=== PATIENT | female | born 1990 | race Hispanic/Latino ===

== ENCOUNTER 2025-07-12 19:00 | Inpatient (IN) | payer BC, MEDICAID ==
[2025-07-12] MEDS ORDERED: Oxytocin 30 units/NS 500 ML 500 ML IV SCH ×2 (20:06)
[2025-07-12] MEDS ORDERED: Diphenoxylate HCl/Atropine Tablet PO PRN (20:06)
[2025-07-12] MEDS ORDERED: Ondansetron PF 4 MG/2 ML Vial IVP PRN (20:06)
[2025-07-12] MEDS ORDERED: Tranexamic Acid 1,000 MG/10 ML VIAL IVP PRN (20:06)
[2025-07-12] MEDS ORDERED: Lidocaine 1% (PF) 30 ML VIAL SC PRN (20:06)
[2025-07-12] MEDS ORDERED: hydrALAZINE 20 MG/ML VIAL SLOW IVP PRN (20:06)
[2025-07-12] MEDS ORDERED: HYDROcodone/Acetaminophen 5/325 mg Tablet PO PRN (20:06)
[2025-07-12] MEDS ORDERED: Carboprost 250 MCG/ML AMP IM PRN (20:06)
[2025-07-12] MEDS ORDERED: Methylergonovine 0.2 MG/ML VIAL IM PRN (20:06)
[2025-07-12 20:16] VITALS: BMI 32.1
[2025-07-12 21:22] LABS: Hematocrit 32.5 % (34.9-44.5); Hemoglobin 11.4 g/dL (12.0-15.5); Mean Corpuscular Hemoglobin 29.6 pg (27.0-33.0); Mean Corpuscular Volume 84.4 fL (81.6-98.3); Platelet Count 233 10x3/uL (150-450); Red Blood Cell (RBC) Count 3.85 10x6/uL (3.90-5.03); White Blood Cell (WBC) Count 7.90 10x3/uL (3.5-10.5)
[2025-07-12 22:30] LABS: Syphilis Antibody Index 0.06 S/CO (<1.00 Non-Reactive)
[2025-07-12 22:32] LABS: Hep B Surf Ag - L&D Non-Reactive S/CO (NonReactive)
[2025-07-13] MEDS: fentaNYL/Ropivacaine Epidural 100 ML ONE (11:20)
[2025-07-13] MEDS ORDERED: Acetaminophen 325 MG TAB PO PRN (11:36)
[2025-07-13] MEDS ORDERED: Ondansetron PF 4 MG/2 ML Vial IVP PRN ×2 (11:36→22:01)
[2025-07-13] MEDS ORDERED: diphenhydrAMINE 50 MG/ML VIAL IVP PRN (11:36)
[2025-07-13] MEDS ORDERED: Communication Order-Pharmacy FS SCH (11:45)
[2025-07-13] MEDS ORDERED: fentaNYL 2 mcg/Ropivacaine 0.2% Epidural 100 ML CADD EPIDURAL SCH (11:45)
[2025-07-13] MEDS: Oxytocin 30 units/NS 500 ML 500 ML IV SCH (11:59)
[2025-07-13] MEDS ORDERED: Bupivacaine 0.25% HCL 30 ML VIAL ONE (17:00)
[2025-07-13] MEDS: Acetaminophen 500 MG TAB PO PRN (20:48)
[2025-07-13] MEDS: Ibuprofen 800 MG TAB PO PRN (20:48)
[2025-07-13] MEDS ORDERED: Bisacodyl 10 MG SUPP PR PRN (22:01)
[2025-07-13] MEDS ORDERED: HYDROcodone/Acetaminophen 5/325 mg Tablet PO PRN (22:01)
[2025-07-13] MEDS ORDERED: hydrALAZINE 20 MG/ML VIAL SLOW IVP PRN (22:01)
[2025-07-13] MEDS ORDERED: diphenhydrAMINE 25 MG CAP PO PRN (22:01)
[2025-07-13] MEDS ORDERED: Milk Of Magnesia 30 ML UDCUP PO PRN (22:01)
[2025-07-13] MEDS ORDERED: Boostrix 0.5 ML (Tdap) VIAL (>/=7 yrs of age) IM ONE (22:01)
[2025-07-14] MEDS: Ibuprofen 800 MG TAB PO SCH ×2 (00:06→04:52)
[2025-07-14] MEDS: Ferrous Sulfate 325 MG TAB PO SCH (08:27)
[2025-07-14 20:33] VITALS: BP 113/68; TEMP 97.7
== END 2025-07-14 20:50 | disposition home or self-care (01) | DRG 807 ==
LOC: CSHLD 19:44 → CSHPP 07-13 21:45
PROVIDERS: ADMIT Family Medicine; ATTEND Family Medicine
PROC: 10E0XZZ Delivery of Products of Conception, External Approach (ICD-10-PCS; principal; 2025-07-13)
PROC: 10907ZC Drainage of Amniotic Fluid, Therapeutic from Products of Conception, Via Natural or Artificial Opening (ICD-10-PCS; 2025-07-13)
PROC: 3E0DXGC Introduction of Other Therapeutic Substance into Mouth and Pharynx, External Approach (ICD-10-PCS; 2025-07-13)
DX: O24.420 Gestational diabetes mellitus in childbirth, diet controlled (principal); Z37.0 Single live birth; Z79.899 Other long term (current) drug therapy; Z79.82 Long term (current) use of aspirin; Z3A.39 39 weeks gestation of pregnancy
CPT/HCPCS: 36416; 85027; 86780; 86850; 86900; 86901; 87340; J0665; J2590; J7120